=== PATIENT | male | born 1975 | race African-American/Black ===

== ENCOUNTER 2016-07-12 19:10 | Emergency (ER) | payer MEDICARE, OTHER ==
--- NOTE | 2016-07-12 19:13 | ED Physician Chart ---
Chief Complaint/HPI - Patient Information Date Seen:: 07/12/16 Time Seen:: 19:13 Chief Complaint:: chest pain History of Present Illness:: 41-year-old male history of MD 3, smoker, complains of acute, constant, squeezing, moderate to severe, 8 out of 10 at worst, chest pain 45 minutes prior to arrival. Has some associated anxiety. Denies nausea, vomiting, diaphoresis, palpitations, headache, acute vision changes, abdominal pain, gross hematuria, gross blood in stool. Historian:: Patient Review:: Nurse's Note Reviewed Review of Systems - Review of Systems Other: Complete system review otherwise unremarkable except as noted in history of present illness. Past Medical History - Past Medical History Past Medical History: HTN, Other (CHF, seizure disorder, history of pulmonary embolus, hypercholesterolemia, hepatitis C, HIV, schizophrenia, CVA 3, MD 3) Family History: None Social History: Smoker, No Alcohol, No Drug Use, Other Surgical History: None Psychiatricy History: None Medication: Reviewed Family Medical History - Family Member Mother History Unknown: Yes Physical Exam - Physical Examination Other:: INITIAL VITAL SIGNS: Reviewed by me GENERAL: Alert and interactive. No acute distress HEAD: Head is normocephalic and atraumatic EYES: EOMI. PERRL. No scleral icterus. No conjunctival injection ENT: Moist mucous membranes. NECK: Supple. No masses. Full range of motion RESPIRATORY: No tachypnea. Clear breath sounds bilaterally. No wheezing, rales, or rhonchi CV: Regular rate and rhythm. No murmurs, rubs, or gallops ABDOMEN: Soft, non-distended, non-tender. No guarding. No rebound. No masses. EXTREMITIES: No deformity. No cyanosis. No edema. SKIN: Warm and dry. No obvious rashes. NEUROLOGIC: Alert and oriented. Face is symmetric. Speech is normal. Moves all extremities equally. Motor and sensory distally intact. Labs/Radiology/EKG Results - Lab Results Results: Lab Results 07/12/16 07/12/16 07/12/16 Range/Units 19:50 19:50 19:50 WBC 6.3 (4.8-10.8) Th/cmm RBC 4.57 (4.30-5.70) Mil/cmm Hgb 10.9 L (13.2-17.3) gm/dL Hct 33.9 L (39.0-49.0) % MCV 74.3 L (80-99) fl MCH 23.9 L (26.0-30.0) pg MCHC Differential 32.2 (28.0-36.0) pg RDW 18.3 (11.5-20.0) % Plt Count 167 (150-400) Th/cmm MPV 8.7 fl Neutrophils % 56.3 (40.0-80.0) % Lymphocytes % 34.1 (20.0-50.0) % Monocytes % 5.7 (2.0-10.0) % Eosinophils % 2.9 (0.0-5.0) % Basophils % 1.0 (0.0-2.0) % PT 11.0 (9.5-11.5) SECONDS INR 1.06 (0.5-1.4) Sodium 136 (136-145) mEq/L Potassium 4.7 (3.5-5.1) mEq/L Chloride 110 H (98-107) mEq/L Carbon Dioxide 26.7 (21.0-31.0) mEq/L Anion Gap 4.0 L (7.0-16.0) BUN 21 (7-25) mg/dL Creatinine 1.3 (0.7-1.3) mg/dL Est GFR ( Amer) > 60.0 (>90) ml/min Est GFR (Non-Af Amer) > 60.0 ml/min BUN/Creatinine Ratio 16.2 Glucose 98 (70-105) mg/dL Calcium 9.4 (8.6-10.3) mg/dL Total Bilirubin 0.3 (0.3-1.0) mg/dL AST 23 (13-39) U/L ALT 14 (7-52) U/L Alkaline Phosphatase 84 (34-104) U/L Creatine Kinase 702 H (30-223) U/L Troponin I (0.01-0.05) ng/mL Total Protein 7.6 (6.0-8.3) gm/dL Albumin 4.3 (4.2-5.5) gm/dL Globulin 3.3 gm/dL Albumin/Globulin Ratio 1.3 (1.0-1.8) Triglycerides 97 (<150) mg/dL Cholesterol 204 H (<200) mg/dL LDL Cholesterol Direct 124 (75-193) mg/dL HDL Cholesterol 52 (23-92) mg/dL 07/12/16 Range/Units 19:50 WBC (4.8-10.8) Th/cmm RBC (4.30-5.70) Mil/cmm Hgb (13.2-17.3) gm/dL Hct (39.0-49.0) % MCV (80-99) fl MCH (26.0-30.0) pg MCHC Differential (28.0-36.0) pg RDW (11.5-20.0) % Plt Count (150-400) Th/cmm MPV fl Neutrophils % (40.0-80.0) % Lymphocytes % (20.0-50.0) % Monocytes % (2.0-10.0) % Eosinophils % (0.0-5.0) % Basophils % (0.0-2.0) % PT (9.5-11.5) SECONDS INR (0.5-1.4) Sodium (136-145) mEq/L Potassium (3.5-5.1) mEq/L Chloride (98-107) mEq/L Carbon Dioxide (21.0-31.0) mEq/L Anion Gap (7.0-16.0) BUN (7-25) mg/dL Creatinine (0.7-1.3) mg/dL Est GFR ( Amer) (>90) ml/min Est GFR (Non-Af Amer) ml/min BUN/Creatinine Ratio Glucose (70-105) mg/dL Calcium (8.6-10.3) mg/dL Total Bilirubin (0.3-1.0) mg/dL AST (13-39) U/L ALT (7-52) U/L Alkaline Phosphatase (34-104) U/L Creatine Kinase (30-223) U/L Troponin I 0.01 (0.01-0.05) ng/mL Total Protein (6.0-8.3) gm/dL Albumin (4.2-5.5) gm/dL Globulin gm/dL Albumin/Globulin Ratio (1.0-1.8) Triglycerides (<150) mg/dL Cholesterol (<200) mg/dL LDL Cholesterol Direct (75-193) mg/dL HDL Cholesterol (23-92) mg/dL - Radiology Results Comments:: Single AP VIEW Portable Chest X-ray was interpreted independently and contemporaneously by Calli Williamson MD: No cardiomegaly Normal mediastinum No lung infiltrates No pneumothorax No soft tissue or bony abnormalities - EKG Interpretations Comments:: 12-lead EKG Interpretation by Calli Williamson MD: Normal Sinus Rhythm with ventricular rate of 57 beats per minute Normal axis Normal intervals Left atrial enlargement with early repolarization pattern No acute ST or T wave changes. No obvious STEMI Assessment - Assessment General Assessment: SMOKING CESSATION COUNSELING: I spent greater than 3 minutes at the bedside with the patient discussing the benefits of smoking cessation, including decreased risk of heart disease, lung cancer, and emphysema. We also discussed strategies for smoking cessation, including pharmaceutical options. The patient was also encouraged to follow up with the primary care physician for outpatient follow-up. ED Septic Shock - . Is Septic Shock (SBP<90, OR Lactate>4 mmol\L) present?: No Reassessment (Disposition) - Reassessment Reassessment:: Patient reports aspirin allergy. We will hold aspirin given allergy. Patient is a heavy smoker. Has bilateral wheezing. Ordered DuoNeb. Patient refuses DuoNeb. Patient became very aggressive toward staff. I did discuss his lab findings with him. And x-rays an EKG. Patient did receive intramuscular Toradol. No indication of this is cardiac related at this point. I recommended that he stay for observation given his history. However there is no indication of EKG that he had prior MD. He has no neurological deficits and does report CVA 3. Patient decided he would leave AGAINST MEDICAL ADVICE. Reassessment Condition:: Improved - Diagnosis Diagnosis:: Acute chest pain unspecified Acute bronchitis - Patient Disposition Discharge/Transfer:: Against Medical Advice Time:: 20:56 Condition at Disposition:: Improved ED Discharge Plan - Patient Disposition Admit/Discharge/Transfer: AGAINST MEDICAL ADVICE
[2016-07-12] MEDS ORDERED: Albuterol/Ipratropium Neb 3 ML AERS HHN ONE (19:52)
[2016-07-12 20:13] LABS: % EOSINOPHILS 2.9 % (0.0-5.0); % LYMPHOCYTES 34.1 % (20.0-50.0); % MONOCYTES 5.7 % (2.0-10.0); % NEUTROPHILS 56.3 % (40.0-80.0); HEMATOCRIT 33.9 % (39.0-49.0); HEMOGLOBIN 10.9 gm/dL (13.2-17.3); MEAN CELL VOLUME 74.3 fl (80-99); MEAN CORPUSCULAR HEMOGLOBIN 23.9 pg (26.0-30.0); MEAN CORPUSCULAR HGB CONC 32.2 pg (28.0-36.0); MEAN PLATELET VOLUME 8.7 fl; NEUTROPHILE ABSOLUTE 3.5 Th/cmm (1.8-8.0); PLATELET COUNT 167 Th/cmm (150-400); RED BLOOD COUNT 4.57 Mil/cmm (4.30-5.70); RED CELL DISTRIBUTION WIDTH 18.3 % (11.5-20.0); WHITE BLOOD COUNT 6.3 Th/cmm (4.8-10.8)
[2016-07-12 20:25] LABS: ALB/GLOB RATIO 1.3 (1.0-1.8); ALKALINE PHOSPHATASE 84 U/L (34-104); BILIRUBIN,TOTAL 0.3 mg/dL (0.3-1.0); BUN - UREA NITROGEN 21 mg/dL (7-25); BUN/CREATININE RATIO 16.2; CALCIUM SERUM 9.4 mg/dL (8.6-10.3); CARBON DIOXIDE 26.7 mEq/L (21.0-31.0); CHLORIDE 110 mEq/L (98-107); CHOLESTEROL 204 mg/dL (<200); CREATININE - SERUM 1.3 mg/dL (0.7-1.3); GLUCOSE 98 mg/dL (70-105); POTASSIUM SERUM 4.7 mEq/L (3.5-5.1); SGOT 23 U/L (13-39); SGPT/ALT 14 U/L (7-52); SODIUM SERUM 136 mEq/L (136-145); TRIGLYCERIDES 97 mg/dL (<150)
[2016-07-12 20:28] LABS: TROP I 0.01 ng/mL (0.01-0.05)
[2016-07-12 20:29] LABS: INR 1.06 (0.5-1.4)
[2016-07-12 20:56] LABS: BNP 21.9 pg/mL (5.0-100.0)
--- NOTE | 2016-07-13 09:49 | Diagnostic Imaging Report ---
Portable chest x-ray History: Pain Allowing for portable technique the heart size is normal. No focal pulmonary parenchymal processes. No hilar or mediastinal abnormalities. Impression: No acute abnormalities.
== END 2016-07-12 20:50 | disposition left against medical advice (07) ==
LOC: ER 19:10
DX: R07.89 Other chest pain (principal); J20.9 Acute bronchitis, unspecified; I10 Essential (primary) hypertension; F17.200 Nicotine dependence, unspecified, uncomplicated; Z88.6 Allergy status to analgesic agent; Z88.0 Allergy status to penicillin; Z88.8 Allergy status to other drugs, medicaments and biological substances
CPT/HCPCS: 36415-UA; 71010-TC; 80053-TC; 80061-TC; 82550-TC; 82553; 83880-TC; 84484-TC; 85025-TC; 85610-TC; 93005; J1885

== ENCOUNTER 2016-09-30 10:04 | Emergency (ER) | payer MEDICARE, OTHER ==
[2016-09-30 10:57] LABS: % BASOPHILS 0.2 % (0.0-2.0); % EOSINOPHILS 1.9 % (0.0-5.0); % LYMPHOCYTES 21.9 % (20.0-50.0); % MONOCYTES 8.2 % (2.0-10.0); % NEUTROPHILS 67.8 % (40.0-80.0); HEMATOCRIT 32.9 % (39.0-49.0); HEMOGLOBIN 10.7 gm/dL (13.2-17.3); MEAN CELL VOLUME 77.4 fl (80-99); MEAN CORPUSCULAR HEMOGLOBIN 25.1 pg (26.0-30.0); MEAN CORPUSCULAR HGB CONC 32.5 pg (28.0-36.0); MEAN PLATELET VOLUME 8.7 fl; NEUTROPHILE ABSOLUTE 5.5 Th/cmm (1.8-8.0); PLATELET COUNT 141 Th/cmm (150-400); RED BLOOD COUNT 4.25 Mil/cmm (4.30-5.70); RED CELL DISTRIBUTION WIDTH 18.8 % (11.5-20.0)
[2016-09-30 11:02] LABS: WHITE BLOOD COUNT 8.2 Th/cmm (4.8-10.8)
[2016-09-30 11:06] LABS: URINE BILIRUBIN NEGATIVE (NEGATIVE); URINE COLOR YELLOW; URINE GLUCOSE (UA) NEGATIVE (NEGATIVE); URINE KETONE NEGATIVE (NEGATIVE)
[2016-09-30 11:07] LABS: URINE BLOOD NEGATIVE (NEGATIVE); URINE PROTEIN TRACE mg/dL (NEGATIVE); URINE UROBILINOGEN 0.2 E.U./dL (0.2 - 1.0)
[2016-09-30 11:08] LABS: ALB/GLOB RATIO 1.2 (1.0-1.8); ANION GAP 9.8 (7.0-16.0); BILIRUBIN,TOTAL 0.2 mg/dL (0.3-1.0); BUN/CREATININE RATIO 17.6; CALCIUM SERUM 9.4 mg/dL (8.6-10.3); CARBON DIOXIDE 24.6 mEq/L (21.0-31.0); CREATININE - SERUM 1.7 mg/dL (0.7-1.3); POTASSIUM SERUM 4.4 mEq/L (3.5-5.1)
[2016-09-30 11:15] LABS: URINE BACTERIA NONE SEEN /hpf (NONE SEEN); URINE EPITHELIAL CELLS OCCASIONAL /lpf (FEW); URINE RBC NONE SEEN /hpf (0-5); URINE WBC NONE SEEN /hpf (0-5)
[2016-09-30 11:23] LABS: AMPHETAMINE URINE NEGATIVE (NEGATIVE); BARBITURATES URINE POSITIVE (NEGATIVE); METHADONE URINE NEGATIVE (NEGATIVE)
--- NOTE | 2016-09-30 12:10 | ED Physician Chart ---
Chief Complaint/HPI - Patient Information Date Seen:: 09/30/16 Time Seen:: 10:20 Chief Complaint:: abdomimal pain History of Present Illness:: THIS IS A 41 YO MALE WHO STATES THAT HE HAS ABDOMINAL PAIN FROM VOMITING UP BLOOD YESTERDAY. HE ALSO STATED THAT HE WAS SCOPED AND ANOTHER HOSPITAL LAST NIGHT FOR HIS BLEEDING. NOW HE STATES THAT HE IS CONCERNED ABOUT HIS DIARRHEA. HE RATES HIS PAIN AND 9/10 FOR THE LAST THREE HOURS. HE IS A SMOKER AND TAKES MEDICATIONS FOR PAIN AND ANXIETY. HE REQUEST THAT HIS DOCTOR BE CALLED. HIS PMD WAS CALLED AT [phone] DR. Hobson, however he will not be in until monday. THE OFFICE WAS IN [place], [place]., THE NURSE STATED THAT HE GETS ATIVAN AND NARCO FOR HIS CONDITION WHICH SHE WOULD NOT ELABORATE ON. HE DENIES FEVER, VOMITING DIAPHORESIS, PALPITATION AND DENIES URINARY TRACT SYMPTOMS. Allergies:: Allergies Allergy/AdvReac Type Severity Reaction Status Date / Time acetaminophen [From Vicodin] Allergy Verified 07/12/16 19:31 aspirin Allergy Verified 07/12/16 19:31 hydrocodone [From Vicodin] Allergy Verified 07/12/16 19:31 nitroglycerin Allergy Verified 07/12/16 19:31 Penicillins Allergy Verified 07/12/16 19:31 Vitals:: Vital Signs - 8 hr 09/30/16 09/30/16 10:13 11:23 Temp 98.5 F 98.5 F HR 100 100 RR 16 16 BP 123/74 123/74 O2 Sat % 100 100 Historian:: Patient, Medical Records Review:: Nurse's Note Reviewed Review of Systems - Review of Systems General/Constitutional: No fever, No chills, No weight loss, No weakness, No diaphoresis, No edema, No loss of appetite Skin: No skin lesions, No rash, No bruising Head: No headache, No light-headedness Eyes: No loss of vision, No pain, No diplopia ENT: No earache, No nasal drainage, No sore throat, No tinnitus Neck: No neck pain, No swelling, No thyromegaly, No stiffness, No mass noted Cardio Vascular: No chest pain, No palpitations, No PND, No orthopnea, No edema Pulmonary: No SOB, No cough, No sputum, No wheezing GI: No nausea, No vomiting, Diarrhea, Pain, No melena, No hematochezia, Constipation, No hematemesis G/U: No dysuria, No frequency, No hematuria Musculoskeletal: No bone or joint pain, No back pain, No muscle pain Endocrine: No polyuria, No polydipsia Psychiatric: No prior psych history, No depression, No anxiety, No suicidal ideation Hematopoietic: No bruising, No lymphadenopathy Allergic/Immuno: No urticaria, No angioedema Neurological: No syncope, No focal symptoms, No weakness, No paresthesia, No headache, No seizure, No dizziness, No confusion, No vertigo Past Medical History - Past Medical History Obtainable: Yes Past Medical History: HTN, CHF, CVA/TIA, DVT/PE, Dyslipidemia, Other (PSYCH DISORDER, HEP C, HIV) Family History: Heart disease, HTN Social History: Smoker, Alcohol, Illicit Drug Use Surgical History: None Psychiatricy History: Schizophrenia Medication: Reviewed Family Medical History - Family Member Mother History Unknown: Yes Physical Exam - Physical Examination General/Constitutional: Awake, Well-developed, well-nourished, Alert, No distress, GCS 15, Non-toxic appearing, Ambulatory Head: Atraumatic Eyes: Lids, conjuctiva normal, PERRL, EOMI Skin: Nl inspection, No rash, No skin lesions, No ecchymosis, Well hydrated, No lymphadenopathy ENMT: External ears, nose nl, Nasal exam nl, Lips, teeth, gums nl Neck: Nontender, Full ROM w/o pain, No JVD, No nuchal rigidity, No bruit, No mass, No stridor Respiratory: Nl effort/Exclusion, Clear to Auscultation, No Wheeze/Rhonchi/Rales Cardio Vascular: RRR, No murmur, gallop, rubs, NL S1 S2 GI: No tenderness/rebounding/guarding (MINIMAL TENDERNESS IN THE EPIGASTRIC AREA ), No organomegaly, No hernia, Normal BS's, Nondistended, No mass/bruits, No McBurney tenderness : No CVA tenderness Extremities: No tenderness or effusion, Full ROM, normal strength in all extremities, No edema, Normal digits & nails Neuro/Psych: Alert/oriented, DTR's symmetric, Normal sensory exam, Normal motor strength, Judgement/insight normal, Mood normal, Normal gait, No focal deficits Misc: normal gait, Normal back, No paraspinal tenderness Labs/Radiology/EKG Results - Lab Results Results: Laboratory Tests 09/30/16 09/30/16 09/30/16 10:40 10:40 10:40 WBC 8.2 D RBC 4.25 L Hgb 10.7 L Hct 32.9 L MCV 77.4 L MCH 25.1 L MCHC Differential 32.5 RDW 18.8 Plt Count 141 L MPV 8.7 Neutrophils % 67.8 Lymphocytes % 21.9 Monocytes % 8.2 Eosinophils % 1.9 Basophils % 0.2 Sodium 138 Potassium 4.4 Chloride 108 H Carbon Dioxide 24.6 Anion Gap 9.8 BUN 30 H Creatinine 1.7 H Est GFR ( Amer) 56.9 Est GFR (Non-Af Amer) 47.0 BUN/Creatinine Ratio 17.6 Glucose 108 H Calcium 9.4 Total Bilirubin 0.2 L AST 17 ALT 16 Alkaline Phosphatase 97 Troponin I Total Protein 7.4 Albumin 4.1 L Globulin 3.3 Albumin/Globulin Ratio 1.2 Urine Source CLEAN C Urine Color YELLOW Urine Clarity SL. CLOUDY Urine pH 6.0 Ur Specific [place] 1.010 Urine Protein TRACE Urine Glucose (UA) NEGATIVE Urine Ketones NEGATIVE Urine Blood NEGATIVE Urine Nitrate NEGATIVE Urine Bilirubin NEGATIVE Urine Urobilinogen 0.2 Ur Leukocyte Esterase NEGATIVE Urine RBC NONE SEEN Urine WBC NONE SEEN Ur Epithelial Cells OCCASIONAL Urine Bacteria NONE SEEN Urine Opiates Screen Urine Methadone Screen Ur Barbiturates Screen Ur Tricyclics Screen Ur Phencyclidine Scrn Amphetamines Screen U Methamphetamines Scrn U Benzodiazepines Scrn U Cocaine Metab Screen U Cannabinoids Screen Ethyl Alcohol 09/30/16 09/30/16 09/30/16 10:40 10:40 10:40 WBC RBC Hgb Hct MCV MCH MCHC Differential RDW Plt Count MPV Neutrophils % Lymphocytes % Monocytes % Eosinophils % Basophils % Sodium Potassium Chloride Carbon Dioxide Anion Gap BUN Creatinine Est GFR ( Amer) Est GFR (Non-Af Amer) BUN/Creatinine Ratio Glucose Calcium Total Bilirubin AST ALT Alkaline Phosphatase Troponin I 0.02 Total Protein Albumin Globulin Albumin/Globulin Ratio Urine Source Urine Color Urine Clarity Urine pH Ur Specific [place] Urine Protein Urine Glucose (UA) Urine Ketones Urine Blood Urine Nitrate Urine Bilirubin Urine Urobilinogen Ur Leukocyte Esterase Urine RBC Urine WBC Ur Epithelial Cells Urine Bacteria Urine Opiates Screen POSITIVE H Urine Methadone Screen NEGATIVE Ur Barbiturates Screen POSITIVE H Ur Tricyclics Screen NEGATIVE Ur Phencyclidine Scrn NEGATIVE Amphetamines Screen NEGATIVE U Methamphetamines Scrn NEGATIVE U Benzodiazepines Scrn NEGATIVE U Cocaine Metab Screen NEGATIVE U Cannabinoids Screen NEGATIVE Ethyl Alcohol < 10 Assessment - Assessment General Assessment: THE PATIENT THREATEN TO GO AMA BUT HE WAS COOPERATIVE AFTER THE PLAN OF TREATMENT WAS GIVEN TO HIM. HE WAS GIVEN FANATREX FOR HIS PAIN AND NERVOUS DISORDER. ED Septic Shock - . Is Septic Shock (SBP<90, OR Lactate>4 mmol\L) present?: No - <6hrs of presentation: Vital Signs: Vital Signs - 8 hr 09/30/16 09/30/16 10:13 11:23 Temp 98.5 F 98.5 F HR 100 100 RR 16 16 BP 123/74 123/74 O2 Sat % 100 100 Reassessment (Disposition) - Reassessment Reassessment Condition:: Unchanged - Diagnosis Diagnosis:: ABDOMINAL PAIN - Aftercare/Follow up Instructions Aftercare/Follow-Up Instructions:: Counseled pt regarding lab results/diagnosis & need follow up, Refer to Discharge Instructions, Counseled pt & family regarding lab results/diagnosis & need follow up - Patient Disposition Discharge/Transfer:: Home Condition at Disposition:: Unchanged ED Discharge Plan - Patient Disposition Admit/Discharge/Transfer: PT DISCHARGED HOME Condition at Disposition: Unchanged Prescriptions: Gabapentin 600 mg PO Q6HR PRN #30 tablet PRN Reason: Pain (Mild) Instructions: Abdominal Pain Additional Instructions: Folow up with Primary care provider in 1-3 days. If symptoms worsen return to Emergency room Accepting Physician: Ly Coffman [Other] - 1-3 Days
== END 2016-09-30 11:55 | disposition home or self-care (01) ==
LOC: ER 10:04
DX: I11.0 Hypertensive heart disease with heart failure (principal); I50.9 Heart failure, unspecified; E78.5 Hyperlipidemia, unspecified; F17.200 Nicotine dependence, unspecified, uncomplicated; Z88.0 Allergy status to penicillin; Z86.73 Personal history of transient ischemic attack (TIA), and cerebral infarction without residual deficits; Z88.6 Allergy status to analgesic agent; Z88.8 Allergy status to other drugs, medicaments and biological substances
CPT/HCPCS: 36415-UA; 80053-TC; 80307; 80320-TC; 81001-TC; 84443-TC; 84484-TC; 85025-TC; 86592-TC; Z7502

== ENCOUNTER 2017-07-13 23:31 | Inpatient (IN) | payer MEDICARE, OTHER ==
[2017-07-14 00:28] LABS: % LYMPHOCYTES 26.7 % (20.0-50.0); % MONOCYTES 7.1 % (2.0-10.0); % NEUTROPHILS 64.2 % (40.0-80.0); EOSINOPHILE ABSOLUTE 0.1 Th/cmm (0.1-0.4); HEMATOCRIT 30.6 % (41.0-60); HEMOGLOBIN 9.9 gm/dL (12-16); LYMPHOCYTE ABSOLUTE 1.8 Th/cmm (1.5-3.0); MEAN CELL VOLUME 75.3 fl (80-99); MEAN CORPUSCULAR HEMOGLOBIN 24.4 pg (26.0-30.0); MEAN CORPUSCULAR HGB CONC 32.4 pg (28.0-36.0); MONOCYTE ABSOLUTE 0.5 Th/cmm (0.3-1.0); NEUTROPHILE ABSOLUTE 4.2 Th/cmm (1.8-8.0); PLATELET COUNT 220 Th/cmm (150-400); RED BLOOD COUNT 4.07 Mil/cmm (4.30-5.70); RED CELL DISTRIBUTION WIDTH 18.7 % (11.5-20.0); WHITE BLOOD COUNT 6.6 Th/cmm (4.8-10.8)
--- NOTE | 2017-07-14 00:32 | ED Physician Chart ---
ED Chief Complaint/HPI - Patient Information Date Seen:: 07/14/17 Time Seen:: 00:15 Chief Complaint:: chest pain History of Present Illness:: Patient developed squeezing-like substernal chest pain at 1900 tonight. Pain is 8 on a scale 1-10. Pain radiates to his right elbow or right leg. He had mild shortness of breath and no diaphoresis. Allergies:: Allergies Allergy/AdvReac Type Severity Reaction Status Date / Time acetaminophen [From Vicodin] Allergy Verified 07/12/16 19:31 aspirin Allergy Verified 07/12/16 19:31 hydrocodone [From Vicodin] Allergy Verified 07/12/16 19:31 nitroglycerin Allergy Verified 07/12/16 19:31 Penicillins Allergy Verified 07/12/16 19:31 Vitals:: Vital Signs - 8 hr 07/13/17 23:40 Temp 98.2 F HR 78 RR 18 BP 127/86 O2 Sat % 98 Historian:: Patient Review:: Nurse's Note Reviewed ED Review of Systems - Review of Systems General/Constitutional: No fever Skin: No skin lesions Head: No headache Eyes: No loss of vision ENT: No earache Neck: No neck pain, No swelling Cardio Vascular: Chest pain Pulmonary: SOB GI: No nausea, No vomiting, No diarrhea G/U: No dysuria Musculoskeletal: No bone or joint pain Endocrine: No polyuria, No polydipsia Psychiatric: No prior psych history Hematopoietic: No bruising Allergic/Immuno: No urticaria Neurological: No syncope, No focal symptoms ED Past Medical History - Past Medical History Past Medical History: HTN, CAD (sickle cell disease; renal failure; status post 3 MIs), Dyslipidemia, Seizures, Other (sickle cell disease; renal failure; status post DVTs 8) Family History: Diabetes Melitus, HTN, Other ( CVA; hyperlipidemia ) Social History: Smoker, Other (smokes one package of cigarettes a day) Surgical History: other (IVC filter; 1 coronary artery stent) Psychiatricy History: None Medication: Reviewed Family Medical History - Family Member Mother History Unknown: Yes Hx Family Coronary Artery Disease: Yes Hx Family Congestive Heart Failure: Yes Hx Family Hypertension: Yes ED Physical Exam - Physical Examination General/Constitutional: Well-developed, well-nourished, Alert, No distress Head: Atraumatic Eyes: Lids, conjuctiva normal Skin: Nl inspection, No rash, No skin lesions, No ecchymosis ENMT: External ears, nose nl, TM canals nl, Nasal exam nl, Lips, teeth, gums nl , Oropharynx nl, Tonsils nl Neck: No nuchal rigidity Respiratory: Nl effort/Exclusion Other Respiratory comments:: Scattered wheezes Cardio Vascular: RRR GI: No tenderness/rebounding/guarding : No CVA tenderness Extremities: Normal digits & nails Other Extremities comments:: 2.5 out of 4 pretibial pitting edema Neuro/Psych: No focal deficits Misc: No paraspinal tenderness ED Labs/Radiology/EKG Results - Lab Results Results: Laboratory Results - last 24 hr 07/14/17 07/14/17 07/14/17 00:15 00:15 00:15 WBC 6.6 RBC 4.07 L Hgb 9.9 L Hct 30.6 L MCV 75.3 L MCH 24.4 L MCHC Differential 32.4 RDW 18.7 Plt Count 220 MPV 8.0 Neutrophils % 64.2 Lymphocytes % 26.7 Monocytes % 7.1 Eosinophils % 2.0 Basophils % 0.0 D-Dimer Sodium 139 Potassium 3.8 Chloride 107 Carbon Dioxide 26.0 Anion Gap 9.8 BUN 17 Creatinine 1.0 Est GFR ( Amer) > 60.0 Est GFR (Non-Af Amer) > 60.0 BUN/Creatinine Ratio 17.0 Glucose 109 H Calcium 8.9 Magnesium 1.9 Troponin I B-Natriuretic Peptide 15.8 07/14/17 07/14/17 00:15 00:15 WBC RBC Hgb Hct MCV MCH MCHC Differential RDW Plt Count MPV Neutrophils % Lymphocytes % Monocytes % Eosinophils % Basophils % D-Dimer 401 H Sodium Potassium Chloride Carbon Dioxide Anion Gap BUN Creatinine Est GFR ( Amer) Est GFR (Non-Af Amer) BUN/Creatinine Ratio Glucose Calcium Magnesium Troponin I < 0.01 L B-Natriuretic Peptide - Radiology Results Results: Chest x-ray negative - EKG Interpretations Rate & Rhythm: normal sinus rhythm with a rate of 73 [place]: normal ED Assessment - Assessment General Assessment: At 0135 patient's pain was slightly improved ED Septic Shock - . Is Septic Shock (SBP<90, OR Lactate>4 mmol\L) present?: No - <6hrs of presentation: Vital Signs: Vital Signs - 8 hr 07/13/17 23:40 Temp 98.2 F HR 78 RR 18 BP 127/86 O2 Sat % 98 ED Reassessment (Disposition) - Reassessment Reassessment Condition:: Improved - Diagnosis Diagnosis:: Chest pain; anemia; s/p DVTs - Patient Disposition Admitted to:: Telemetry Spoke to:: Josiah Bob Admitting Medical Physician:: Josiah Bob Condition at Disposition:: Stable, Improved
[2017-07-14] MEDS ORDERED: Morphine Sulfate 4 mg/mL 1mL Syr IV STA (00:37)
[2017-07-14 00:42] LABS: ANION GAP 9.8 (7.0-16.0); BUN - UREA NITROGEN 17 mg/dL (7-25); CALCIUM SERUM 8.9 mg/dL (8.6-10.3); CHLORIDE 107 mEq/L (98-107); GFR AFRICAN-AMERICAN > 60.0 ml/min (>90); GFR NON AFRICAN-AMERICAN > 60.0 ml/min; GLUCOSE 109 mg/dL (70-105); MAGNESIUM 1.9 mg/dL (1.9-2.7); POTASSIUM SERUM 3.8 mEq/L (3.5-5.1); SODIUM SERUM 139 mEq/L (136-145)
[2017-07-14] MEDS ORDERED: Morphine Sulfate 4 mg/mL 1mL Syr ONE (00:43)
[2017-07-14] MEDS ORDERED: Morphine Sulfate 4 mg/mL 1mL Syr IV PRN (02:15)
[2017-07-14 03:17] VITALS: BP 133/83
--- NOTE | 2017-07-14 07:27 | Diagnostic Imaging Report ---
CHEST X-RAY: AP view INDICATION: pain COMPARISON: 07/12/2016 FINDINGS: There is mild elevation of the right hemidiaphragm. There is no focal consolidation or pleural effusions The heart is at the upper limits of normal in size. The osseous structures demonstrate no acute abnormalities. IMPRESSION: No focal consolidation identified.
== END 2017-07-14 07:47 | disposition left against medical advice (07) | DRG 303 ==
LOC: ER 23:31 → TELE 07-14 01:45
PROVIDERS: ADMIT Family Medicine; ATTEND Family Medicine
DX: I25.10 Atherosclerotic heart disease of native coronary artery without angina pectoris (principal); R07.89 Other chest pain; I10 Essential (primary) hypertension; E78.5 Hyperlipidemia, unspecified; D57.1 Sickle-cell disease without crisis; R56.9 Unspecified convulsions; F17.210 Nicotine dependence, cigarettes, uncomplicated; D64.9 Anemia, unspecified; Z88.0 Allergy status to penicillin; I25.2 Old myocardial infarction; Z95.5 Presence of coronary angioplasty implant and graft; Z88.8 Allergy status to other drugs, medicaments and biological substances; Z86.718 Personal history of other venous thrombosis and embolism; Z83.3 Family history of diabetes mellitus; Z82.49 Family history of ischemic heart disease and other diseases of the circulatory system
CPT/HCPCS: 36415-UA; 71045-TC; 80048-TC; 83735-TC; 83880-TC; 84484-TC; 85025-TC; 85379-TC; 93005; 96374

== ENCOUNTER 2018-03-16 07:06 | Emergency (ER) | payer MEDICARE, OTHER ==
--- NOTE | 2018-03-16 07:23 | ED Physician Chart ---
ED Chief Complaint/HPI - Patient Information Date Seen:: 03/16/18 Time Seen:: 07:26 Chief Complaint:: cough and SOB History of Present Illness:: cough and SOB in a man with h/o PE and DVT. patient is obnoxious and rude to all staff. Just came back from [place]. was diagnosed with pneumonia (records reviewed ) and was given a prescription for Cefdinir to take that he did not get filled. He continues to smoke. Allergies:: Allergies Allergy/AdvReac Type Severity Reaction Status Date / Time acetaminophen [From Vicodin] Allergy Verified 07/12/16 19:31 aspirin Allergy Verified 07/12/16 19:31 hydrocodone [From Vicodin] Allergy Verified 07/12/16 19:31 nitroglycerin Allergy Verified 07/12/16 19:31 Penicillins Allergy Verified 07/12/16 19:31 Historian:: Patient Review:: Nurse's Note Reviewed ED Review of Systems - Review of Systems General/Constitutional: No fever, No chills, No weight loss, No weakness, No diaphoresis, No edema, No loss of appetite Skin: No skin lesions, No rash, No bruising Head: No headache, No light-headedness Eyes: No loss of vision, No pain, No diplopia ENT: No earache, No nasal drainage, No sore throat, No tinnitus Neck: No neck pain, No swelling, No thyromegaly, No stiffness, No mass noted Cardio Vascular: Chest pain, No palpitations, No orthopnea, edema Pulmonary: SOB, Cough, No sputum, Wheezing GI: No nausea, No vomiting, No diarrhea, No pain, No melena, No hematochezia, No constipation, No hematemesis G/U: No dysuria, No frequency, No hematuria Musculoskeletal: No bone or joint pain, No back pain, Muscle pain Endocrine: No polyuria, No polydipsia Psychiatric: No prior psych history, No depression, No anxiety, No suicidal ideation Hematopoietic: No bruising, No lymphadenopathy Allergic/Immuno: No urticaria, No angioedema Neurological: No syncope, No focal symptoms, No weakness, No paresthesia, No headache, No seizure, No dizziness, No confusion, No vertigo ED Past Medical History - Past Medical History Obtainable: Yes Past Medical History: CAD, CVA/TIA, DVT/PE Social History: Smoker, Illicit Drug Use Surgical History: other (juan j filter in place.) Psychiatricy History: Schizophrenia Family Medical History - Family Member Mother History Unknown: Yes Hx Family Coronary Artery Disease: Yes Hx Family Congestive Heart Failure: Yes Hx Family Hypertension: Yes ED Physical Exam - Physical Examination General/Constitutional: Awake, Well-developed, well-nourished, Alert Other Gen/Cons comments:: overweight patient very rude and obnoxious to all staff. He was angry at nurse Mannie that he was breathing. Head: Atraumatic Eyes: Lids, conjuctiva normal, PERRL, EOMI Skin: Nl inspection, No rash, No skin lesions, No ecchymosis, Well hydrated, No lymphadenopathy ENMT: External ears, nose nl Neck: Nontender, No nuchal rigidity, No stridor Respiratory: Nl effort/Exclusion, Clear to Auscultation Cardio Vascular: RRR, No murmur, gallop, rubs, NL S1 S2 GI: No tenderness/rebounding/guarding, No organomegaly, No hernia, Normal BS's, Nondistended, No mass/bruits, No McBurney tenderness : No CVA tenderness Other Extremities comments:: edema RLE more than LLE 4+ pitting edema. denies calf tenderness. concerning for DVT. no evidence of compartment syndrome. Neuro/Psych: Alert/oriented Other Neuro/Psych comments:: mood is agitated and commanding. Telling staff what to do and what not to do. ED Assessment - Assessment General Assessment: EKG from 07:10:23 a.m. revelas normal sinus rhythm with flipped t wave in V1. CXR reading per my read: slightly enlarged heart. Slight increase in vascularity. CURES positive wtih [facility] 10/325, Alprazolam 0.5, Phenergan with codeine, Lorazepam, received IV Azactam for possible pneumonia. patient was here for several hours because no one could get an IV into him. Midline was placed by a nurse who came here all the way from [place]. No blood could be drawn from him for any lab work. Arterial stick had to be performed by respiratory to get lab work. Kait, central supply technician supervisor was busy for preop studies. She came here and told us that the ultrasound revealed an acute RLE DVT behind the popliteal area. AFTER HE WAS INFORMED OF THIS, the patient informed us that he has not taken his Eliquis in over a week. THEREFORE, PATIENT WAS BOLUSED WITH 6000 UNITS OF HEPARIN (after denying blood per any orifice in past or present) and started on a drip of 1600 UNITS OF HEPARIN PER HOUR PER PHARMACY. Patient told us that he was allergic to iodine after we wanted to perform a CT angio on him to rule out pulmonary emboli. Therefore, we had to order a VQ scan on him to rule out pulmonary emboli. Patient had to wait 4 hours for the VQ scan. At about the same time that the isotopes arrived, the patient stated that he was leaving AGAINST MEDICAL ADVICE. He refused to sign any paper work. I prepared a prescription for him for antibiotics (Doxycycline) and teaching paper work. He refused to take any of it at all. He was FULLY INFORMED THAT HE COULD IF HE WENT HOME WITH AN UNTREATED, ACUTE DEEP VENOUS THROMBOSIS IN HIS RIGHT LEG. FULLY INFORMED, HE DECIDED TO LEAVE BECAUSE he needed to take a bus to [place]. ED Septic Shock - . Is Septic Shock (SBP<90, OR Lactate>4 mmol\L) present?: No ED Reassessment (Disposition) - Reassessment Reassessment Condition:: Improved - Diagnosis Diagnosis:: Acute RLE DVT in a man who stopped taking his Eliquis over a week ago. Known h/o PE, with a juan j filter in place. Elevated d-dimer Paranoid schizophrenia patient rude to all staff. Possible early pneumonia, patient received Azactam and a prescription for Doxycycline that he refused to take. Drug screen positive for opiates and barbs. Low magnesium Subtherapeutic dilantin level. Normal BNP and troponin. - Aftercare/Follow up Instructions Medication Prescribed:: Doxycycline 100 mg po bid # 20 (which patient refused to take with him). Has Eliquis and a prescription for Eliquis at home which I advised him to take. - Patient Disposition Discharge/Transfer:: Against Medical Advice Condition at Disposition:: Stable, Improved
[2018-03-16] MEDS ORDERED: Albuterol/Ipratropium Neb 3 ML AERS HHN ONE ×2 (08:24→08:31)
[2018-03-16] MEDS ORDERED: Albuterol Nebulizer 2.5mg/3mL HHN STA (08:26)
[2018-03-16 08:32] LABS: % BASOPHILS 0.5 % (0.0-2.0); % EOSINOPHILS 0.8 % (0.0-5.0); % LYMPHOCYTES 22.7 % (20.0-50.0); % MONOCYTES 4.7 % (2.0-10.0); % NEUTROPHILS 71.3 % (40.0-80.0); EOSINOPHILE ABSOLUTE 0.1 Th/cmm (0.1-0.4); HEMATOCRIT 40.1 % (41.0-60); HEMOGLOBIN 12.9 gm/dL (12-16); LYMPHOCYTE ABSOLUTE 1.9 Th/cmm (1.5-3.0); MEAN CELL VOLUME 81.5 fl (80-99); MEAN CORPUSCULAR HEMOGLOBIN 26.2 pg (26.0-30.0); MEAN CORPUSCULAR HGB CONC 32.2 pg (28.0-36.0); MEAN PLATELET VOLUME 7.9 fl; MONOCYTE ABSOLUTE 0.4 Th/cmm (0.3-1.0); NEUTROPHILE ABSOLUTE 6.1 Th/cmm (1.8-8.0); PLATELET COUNT 209 Th/cmm (150-400); RED BLOOD COUNT 4.92 Mil/cmm (4.30-5.70); RED CELL DISTRIBUTION WIDTH 17.6 % (11.5-20.0); WHITE BLOOD COUNT 8.5 Th/cmm (4.8-10.8)
[2018-03-16 08:36] LABS: URINE SOURCE CLEAN C
[2018-03-16] MEDS ORDERED: Albuterol Nebulizer 2.5mg/3mL HHN ONE (08:39)
[2018-03-16 08:40] LABS: URINE BILIRUBIN NEGATIVE (NEGATIVE); URINE BLOOD NEGATIVE (NEGATIVE); URINE GLUCOSE (UA) NEGATIVE (NEGATIVE); URINE KETONE NEGATIVE (NEGATIVE); URINE LEUKOCYTE ESTERASE NEGATIVE (NEGATIVE); URINE MICROSCOPIC INDICATED? YES; URINE NITRATE NEGATIVE (NEGATIVE); URINE PROTEIN TRACE mg/dL (NEGATIVE); URINE UROBILINOGEN 0.2 E.U./dL (0.2 - 1.0)
[2018-03-16 08:45] LABS: ALB/GLOB RATIO 1.2 (1.0-1.8); ALBUMIN 3.8 gm/dL (4.2-5.5); ALKALINE PHOSPHATASE 105 U/L (34-104); ANION GAP 9.7 (7.0-16.0); BILIRUBIN,TOTAL 0.2 mg/dL (0.3-1.0); BUN - UREA NITROGEN 25 mg/dL (7-25); CALCIUM SERUM 8.9 mg/dL (8.6-10.3); CARBON DIOXIDE 31.2 mEq/L (21.0-31.0); CHLORIDE 103 mEq/L (98-107); GFR AFRICAN-AMERICAN > 60.0 ml/min (>90); GFR NON AFRICAN-AMERICAN > 60.0 ml/min; GLUCOSE 114 mg/dL (70-105); MAGNESIUM 1.8 mg/dL (1.9-2.7); PHOSPHOROUS 4.2 mg/dL (2.5-5.0); POTASSIUM SERUM 3.9 mEq/L (3.5-5.1); SGOT 31 U/L (13-39); SGPT/ALT 49 U/L (7-52); SODIUM SERUM 140 mEq/L (136-145); TOTAL PROTEIN,SERUM 7.1 gm/dL (6.0-8.3)
[2018-03-16 08:52] LABS: URINE COLOR STRAW
[2018-03-16 08:53] LABS: URINE CLARITY CLEAR (CLEAR)
[2018-03-16 08:54] LABS: AMPHETAMINE URINE NEGATIVE (NEGATIVE); BARBITURATES URINE POSITIVE (NEGATIVE); BENZODIAZEPINES QUAL URINE NEGATIVE (NEGATIVE); CANNABINOID THC NEGATIVE (NEGATIVE); COCAINE METABOLITE QUAL URINE NEGATIVE (NEGATIVE); METHADONE URINE NEGATIVE (NEGATIVE); METHAMPHETAMINES QUAL URINE NEGATIVE (NEGATIVE); OPIATES (MORPHINE) QUAL. URINE POSITIVE (NEGATIVE); PHENCYCLIDINE (PCP) URINE NEGATIVE (NEGATIVE); TRICYCLICS (TCA) QUAL. URINE NEGATIVE (NEGATIVE)
[2018-03-16 08:57] LABS: INR 1.13 (0.5-1.4); PROTHROMBIN TIME (TEST) 11.6 SECONDS (9.5-11.5)
[2018-03-16 09:00] LABS: URINE EPITHELIAL CELLS RARE /lpf (FEW); URINE RBC NONE SEEN /hpf (0-5); URINE WBC NONE SEEN /hpf (0-5)
--- NOTE | 2018-03-16 09:24 | Diagnostic Imaging Report ---
Chest x-ray single view History: Pain The heart size is normal. No focal pulmonary parenchymal processes. No hilar or mediastinal abnormalities. Impression: No acute abnormalities
--- NOTE | 2018-03-16 13:02 | Diagnostic Imaging Report ---
Bilateral lower extremity Doppler venous ultrasound exam HISTORY: Pain Sonographic sector images were obtained through the deep venous systems of both legs. Associated Doppler data was obtained. The exam the right leg demonstrates patency of the common femoral, superficial femoral, and posterior tibial veins. No thrombus. Intraluminal echogenic density consistent with thrombus is seen within the right popliteal vein. Associated absence of compressibility and augmentation. There is patency of the deep venous system of the left leg. No thrombus. Normal compressibility and augmentation responses. IMPRESSION: 1. Findings consistent with segmental thrombophlebitis within the right popliteal vein.
[2018-03-16] MEDS ORDERED: Heparin 25,000 Units In D5W 25,000 UNITS/250 ML BAG IV PRN (13:20)
[2018-03-16] MEDS ORDERED: Heparin 25,000 Units In D5W 25,000 UNITS/250 ML BAG IV ONE (13:37)
== END 2018-03-16 16:20 | disposition left against medical advice (07) ==
LOC: ER 07:06
DX: I82.401 Acute embolism and thrombosis of unspecified deep veins of right lower extremity (principal); F20.0 Paranoid schizophrenia; E61.2 Magnesium deficiency; R79.89 Other specified abnormal findings of blood chemistry; I25.10 Atherosclerotic heart disease of native coronary artery without angina pectoris; F17.200 Nicotine dependence, unspecified, uncomplicated; Z51.81 Encounter for therapeutic drug level monitoring; Z86.73 Personal history of transient ischemic attack (TIA), and cerebral infarction without residual deficits
CPT/HCPCS: 99284; 96365; 96366; 96368; 96375; 94640; 93005; 93970; 71045; 84484; 83880; 36415; 85379; 80307; 85025; 85610; 81001; 83735; 80185; 84100; 80053; J2405; J1644 ×2; J3490; J7613; Z7502

== ENCOUNTER 2018-07-04 21:08 | Observation (INO) | payer MEDICARE, OTHER ==
--- NOTE | 2018-07-04 21:28 | ED Physician Chart ---
ED Chief Complaint/HPI - Patient Information Date Seen:: 07/04/18 Time Seen:: 21:00 Chief Complaint:: Chest Pain History of Present Illness:: onset x one day of exertional chest pain with leg pain; pt denies trauma, S/T, H /As, neck pain, SOB, Abd. Pain, cough, A/N/V/D/C, fever, chills, or urinary s/s Allergies:: Allergies Allergy/AdvReac Type Severity Reaction Status Date / Time acetaminophen [From Vicodin] Allergy Verified 03/18/18 08:25 aspirin Allergy Verified 03/18/18 08:25 hydrocodone [From Vicodin] Allergy Verified 03/18/18 08:25 Iodine and Iodide Containing Allergy Verified 03/18/18 08:25 Produc nitroglycerin Allergy Verified 03/18/18 08:25 Penicillins Allergy Verified 03/18/18 08:25 Vitals:: Vital Signs - 8 hr 07/04/18 21:08 Temp 97.8 F HR 70 RR 18 BP 144/92 O2 Sat % 96 Historian:: Patient Review:: Nurse's Note Reviewed, Old Chart Reviewed ED Review of Systems - Review of Systems General/Constitutional: No fever, No chills, No weight loss, No weakness, No diaphoresis, No edema, No loss of appetite Skin: No skin lesions, No rash, No bruising Head: No headache, No light-headedness Eyes: No loss of vision, No pain, No diplopia ENT: No earache, No nasal drainage, No sore throat, No tinnitus Neck: No neck pain, No swelling, No thyromegaly, No stiffness, No mass noted Cardio Vascular: Chest pain, No palpitations, No PND, No orthopnea, edema Pulmonary: SOB, No cough, No sputum, No wheezing GI: No nausea, No vomiting, No diarrhea, No pain, No melena, No hematochezia, No constipation, No hematemesis G/U: No dysuria, No frequency, No hematuria, No nacturia Musculoskeletal: No bone or joint pain, No back pain, No muscle pain Endocrine: No polyuria, No polydipsia Psychiatric: No prior psych history, No depression, No anxiety, No suicidal ideation, No homicidal ideation, No auditory hallucination, No visual hallucination Hematopoietic: No bruising, No lymphadenopathy Allergic/Immuno: No urticaria, No angioedema Neurological: No syncope, No focal symptoms, No weakness, No paresthesia, No headache, No seizure, No dizziness, No confusion, No vertigo ED Past Medical History - Past Medical History Obtainable: Yes Past Medical History: HTN, Dyslipidemia Family History: HTN Social History: Smoker, Alcohol, No Drug Use, Single Surgical History: None Psychiatricy History: None Medication: Reviewed Family Medical History - Family Member Mother History Unknown: Yes Hx Family Coronary Artery Disease: Yes Hx Family Congestive Heart Failure: Yes Hx Family Hypertension: Yes ED Physical Exam - Physical Examination General/Constitutional: Awake, Well-developed, well-nourished, Alert, No distress, GCS 15, Non-toxic appearing, Ambulatory Head: Atraumatic Eyes: Lids, conjuctiva normal, PERRL, EOMI Skin: Nl inspection, No rash, No skin lesions, No ecchymosis, Well hydrated, No lymphadenopathy ENMT: External ears, nose nl, TM canals nl, Nasal exam nl, Lips, teeth, gums nl , Oropharynx nl, Tonsils nl Neck: Nontender, Full ROM w/o pain, No JVD, No nuchal rigidity, No bruit, No mass, No stridor Respiratory: Nl effort/Exclusion, Clear to Auscultation, No Wheeze/Rhonchi/Rales Cardio Vascular: RRR, No murmur, gallop, rubs, NL S1 S2 GI: No tenderness/rebounding/guarding, No organomegaly, No hernia, Normal BS's, Nondistended, No mass/bruits, No McBurney tenderness Other GI comments:: no pulsatile masses : No CVA tenderness Extremities: No tenderness or effusion, Full ROM, normal strength in all extremities, No edema, Normal digits & nails Neuro/Psych: Alert/oriented, DTR's symmetric, Normal sensory exam, Normal motor strength, Judgement/insight normal, Mood normal, Normal gait, No focal deficits Misc: Normal back, No paraspinal tenderness ED Labs/Radiology/EKG Results - Lab Results Comments:: Reviewed - Radiology Results Comments:: CXR: CM; NAD - EKG Interpretations EKG Time:: 21:26 Rate & Rhythm: 70; NSR Comments:: non-specific st-t changes ED Septic Shock - . Is Septic Shock (SBP<90, OR Lactate>4 mmol\L) present?: No - <6hrs of presentation: Vital Signs: Vital Signs - 8 hr 07/04/18 21:08 Temp 97.8 F HR 70 RR 18 BP 144/92 O2 Sat % 96 ED Reassessment (Disposition) - Reassessment Reassessment Condition:: Improved - Diagnosis Diagnosis:: Chest Pain; Angina Pectoris; Hyperlipidemia; Hypoalbuminemia; Hypertension - Aftercare/Follow up Instructions Aftercare/Follow-Up Instructions:: Counseled pt regarding lab results/diagnosis & need follow up, Counseled pt & family regarding lab results/diagnosis & need follow up - Patient Disposition Discharge/Transfer:: Acute Care w/in this hosp Accepting Physician:: Dr. Bourgeois Time Called:: 0 Time Responded:: 23:00 Admitted to:: Telemetry Spoke to:: Dr. Bourgeois Admitting Medical Physician:: Dr. Bourgeois Condition at Disposition:: Stable, Improved
[2018-07-04 21:57] LABS: EOSINOPHILE ABSOLUTE 0.1 Th/cmm (0.1-0.4)
[2018-07-04 22:03] LABS: HEMOGLOBIN 13.3 gm/dL (12-16); MEAN CORPUSCULAR HGB CONC 32.5 pg (28.0-36.0); NEUTROPHILE ABSOLUTE 5.2 Th/cmm (1.8-8.0)
[2018-07-04 22:10] LABS: % BASOPHILS 0.4 % (0.0-2.0); % EOSINOPHILS 1.9 % (0.0-5.0); % LYMPHOCYTES 21.9 % (20.0-50.0); % NEUTROPHILS 68.8 % (40.0-80.0); HEMATOCRIT 40.9 % (41.0-60); LYMPHOCYTE ABSOLUTE 1.6 Th/cmm (1.5-3.0); MEAN CELL VOLUME 84.3 fl (80-99); MEAN CORPUSCULAR HEMOGLOBIN 27.4 pg (26.0-30.0); MEAN PLATELET VOLUME 8.3 fl; MONOCYTE ABSOLUTE 0.5 Th/cmm (0.3-1.0); PLATELET COUNT 210 Th/cmm (150-400); RED BLOOD COUNT 4.85 Mil/cmm (4.30-5.70); RED CELL DISTRIBUTION WIDTH 14.4 % (11.5-20.0); WHITE BLOOD COUNT 7.4 Th/cmm (4.8-10.8)
[2018-07-04 22:14] LABS: ALB/GLOB RATIO 1.3 (1.0-1.8); ALKALINE PHOSPHATASE 89 U/L (34-104); ANION GAP 11.6 (7.0-16.0); BILIRUBIN,TOTAL 0.3 mg/dL (0.3-1.0); BUN - UREA NITROGEN 16 mg/dL (7-25); CALCIUM SERUM 9.2 mg/dL (8.6-10.3); CARBON DIOXIDE 26.4 mEq/L (21.0-31.0); CHLORIDE 108 mEq/L (98-107); CHOLESTEROL 211 mg/dL (<200); CREATININE KINASE 303 U/L (30-223); GFR AFRICAN-AMERICAN > 60.0 ml/min (>90); GFR NON AFRICAN-AMERICAN > 60.0 ml/min; GLUCOSE 102 mg/dL (70-105); HDL -HIGH DENSITY LIPOPROTEIN 38 mg/dL (23-92); SGOT 14 U/L (13-39); SGPT/ALT 12 U/L (7-52); SODIUM SERUM 142 mEq/L (136-145); TRIGLYCERIDES 136 mg/dL (<150)
[2018-07-04] MEDS ORDERED: Morphine Sulfate 2 mg/mL 1mL Syr ONE (22:14)
[2018-07-04 22:16] LABS: INR 1.02 (0.5-1.4); PROTHROMBIN TIME (TEST) 10.6 SECONDS (9.5-11.5)
[2018-07-04] MEDS ORDERED: Morphine Sulfate 2 mg/mL 1mL Syr IVP STA (22:17)
[2018-07-04] MEDS ORDERED: Morphine Sulfate 2 mg/mL 1mL Syr IVP PRN (23:05)
[2018-07-04] MEDS ORDERED: Sodium Chloride 0.9% 1,000 ML IV SCH (23:15)
[2018-07-05 02:35] VITALS: BP 138/74
--- NOTE | 2018-07-05 08:35 | History and Physical ---
History of Present Illness - HPI Chief Complaint: Chest pain with exertion HPI: Patient refer that x one day he has having exertional chest pain. Vital Signs: Last Vital Signs Temp 98.2 F 07/04/18 23:45 Pulse 76 07/04/18 23:45 Resp 19 07/04/18 23:45 BP 138/74 07/05/18 02:35 Pulse Ox 95 07/04/18 23:45 Past Medical History Cardiovascular: Report: CAD, HTN Pulmonary: Report: No Pertinent Hx [employer]: Report: Other (Patient uses seroquel, he can not explain the reazon) GI: Report: No Pertinent Hx Psych: Report: Addictions, Other (chronic uses of opiates) Musculoskeletal: Report: No Pertinent Hx Rheumatologic: Report: No pertinent Hx Infectious Disease: Report: No Pertinent Hx Renal/: Report: No Pertinent Hx Endocrine: Report: No Pertinent Hx Dermatology: Report: No Pertinent Hx - Past Surgical History Past Surgical History: No pertinent Hx Family Medical History - Family Member Mother History Unknown: Yes Hx Family Coronary Artery Disease: Yes Hx Family Congestive Heart Failure: Yes Hx Family Hypertension: Yes Social History Smoke: No Alcohol: Occassional Drugs: Other (Addiction to prescribe medications) Lives: With Family Domestic Violence: Negative - Medications Home Medications: Home Medication Medication Instructions Recorded Type Alprazolam [Xanax*] 0.5 mg PO Q12H PRN 09/30/16 History Furosemide [Lasix] 40 mg PO BID 09/30/16 History QUEtiapine Fumarate [SEROquel] 400 mg PO HS 09/30/16 History Atorvastatin Calcium [Lipitor] 20 mg PO DAILY 07/14/17 History Albuterol Sulfate [Proair 90 mcg IH Q6H PRN 03/16/18 History Respiclick] Bumetanide [Bumex] 1 mg PO DAILY 03/16/18 History Ferrous Sulfate [Iron] 325 mg PO BID 03/16/18 History Fluticasone Furoate [Arnuity 50 mcg IH DAILY 03/16/18 History Ellipta] Fluticasone/Salmeterol [Advair 1 puff IH DAILY 03/16/18 History 250-50 Diskus] Levalbuterol Tartrate 15 gm IH Q2H 03/16/18 History [Levalbuterol Tartrate Hfa] Nicotine 21 mg/24 hr [Nicotine 21 mg TD DAILY 03/16/18 History Transdermal System] Ondansetron HCl [Zofran*] 4 mg PO Q8H #12 tab 03/16/18 Rx Potassium Chloride 1 tab PO DAILY 03/16/18 History Prednisone [Deltasone] 40 mg PO DAILY 03/16/18 History Promethazine/Dextromethorphan 5 ml PO Q12H PRN 03/16/18 History [Promethazine-Dm Syrup] - Allergies Allergies/Adverse Reactions: Allergies Allergy/AdvReac Type Severity Reaction Status Date / Time acetaminophen [From Vicodin] Allergy Verified 03/18/18 08:25 aspirin Allergy Verified 03/18/18 08:25 hydrocodone [From Vicodin] Allergy Verified 03/18/18 08:25 Iodine and Iodide Containing Allergy Verified 03/18/18 08:25 Produc nitroglycerin Allergy Verified 03/18/18 08:25 Penicillins Allergy Verified 03/18/18 08:25 Review of Systems - Review of Systems Constitutional: Report: No Significant Eyes: Report: No Significant ENT: Report: No Significant Respiratory: Report: No Significant Cardiovascular: Report: Other (Occasional chest pain) Gastrointestinal: Report: No Significant Genitourinary: Report: No Significant Musculoskeletal: Report: No Significant Skin: Report: No Significant Neurological: Report: No Significant Physical Exam - Physical Exam HEENT: Report: Ears Nose Throat within normal limits Neck: Report: Within normal limits Cardiovascular Systems: Report: Regular, Rate and Rhythm Respiratory: Report: Breath Sounds are within normal limits Abdomen: Report: Non-tender to palpation Back: Report: Inspection of back is within normal limits. Extremities: Report: Non-tender to palpation. Skin: Report: Color of skin is within normal limits Neuro/Psych: Report: Other (Patient is sleeping but arousable) - Lab Results All Lab Results last 24 hours: Laboratory Results - last 24 hr 07/04/18 07/04/18 07/04/18 21:40 21:40 21:40 WBC 7.4 RBC 4.85 Hgb 13.3 Hct 40.9 L MCV 84.3 MCH 27.4 MCHC Differential 32.5 RDW 14.4 Plt Count 210 MPV 8.3 Neutrophils % 68.8 Lymphocytes % 21.9 Monocytes % 7.0 Eosinophils % 1.9 Basophils % 0.4 PT 10.6 INR 1.02 D-Dimer Sodium 142 Potassium 4.0 Chloride 108 H Carbon Dioxide 26.4 Anion Gap 11.6 BUN 16 Creatinine 1.0 Est GFR ( Amer) > 60.0 Est GFR (Non-Af Amer) > 60.0 BUN/Creatinine Ratio 16.0 Glucose 102 Calcium 9.2 Total Bilirubin 0.3 AST 14 ALT 12 Alkaline Phosphatase 89 Creatine Kinase 303 H CK-MB (CK-2) 2.2 Troponin I B-Natriuretic Peptide Total Protein 7.0 Albumin 4.0 L Globulin 3.0 Albumin/Globulin Ratio 1.3 Triglycerides 136 Cholesterol 211 H LDL Cholesterol Direct 158 HDL Cholesterol 38 07/04/18 07/04/18 07/04/18 21:40 21:40 21:40 WBC RBC Hgb Hct MCV MCH MCHC Differential RDW Plt Count MPV Neutrophils % Lymphocytes % Monocytes % Eosinophils % Basophils % PT INR D-Dimer 186 Sodium Potassium Chloride Carbon Dioxide Anion Gap BUN Creatinine Est GFR ( Amer) Est GFR (Non-Af Amer) BUN/Creatinine Ratio Glucose Calcium Total Bilirubin AST ALT Alkaline Phosphatase Creatine Kinase CK-MB (CK-2) Troponin I < 0.01 L B-Natriuretic Peptide 14.8 Total Protein Albumin Globulin Albumin/Globulin Ratio Triglycerides Cholesterol LDL Cholesterol Direct HDL Cholesterol - Assessment Assessment: Patient is sleeping but arousable, in no acuter distress. Dx: Chest pain possible secondary to costochondritis, Hyperlipemia. - Plan Plan: Patient in IV NS, pain control, and ativan for anxiety. CK a little elevated possible secondary to medications ( Albuterol, Atorvastatin, levalbuterol). Troponin is normal, Leg US neg for DVT. Patient will be discharge home.
[2018-07-05] MEDS ORDERED: Ferrous Sulfate 325 MG TAB PO SCH (09:00)
[2018-07-05] MEDS ORDERED: Nicotine 21 mg/24 hr Tdm TD SCH (09:00)
--- NOTE | 2018-07-05 09:00 | Diagnostic Imaging Report ---
Portable chest x-ray Time: 2139 History: Chest pain Allowing for portable technique the heart size is normal. No focal pulmonary parenchymal processes. No hilar or mediastinal abnormalities. Impression: No acute abnormalities.
--- NOTE | 2018-07-05 10:22 | Diagnostic Imaging Report ---
Bilateral lower extremity Doppler venous ultrasound exam HISTORY: Pain/swelling Sonographic sector images were obtained through the deep venous systems of both legs. Associated Doppler data was obtained. The exam demonstrates patency of the common femoral, superficial femoral, popliteal, and posterior tibial veins bilaterally. Specifically, no thrombus is seen. There are normal compressibility and augmentation responses. IMPRESSION: Negative exam for deep vein thrombophlebitis.
--- NOTE | 2018-07-06 00:38 | Consultation ---
DATE OF CONSULTATION: 07/05/[address] Bourgeois. HISTORY OF PRESENT ILLNESS: This 43-year-old -[place] male patient who had been complaining of chest pain for 2 days. Following this, the patient came to the Emergency Room. No history of PND or orthopnea. PAST MEDICAL HISTORY: Hypertension and coronary artery disease. SOCIAL HISTORY: No history of smoking, alcohol abuse. ALLERGIES: No known allergies. PHYSICAL EXAMINATION: VITAL SIGNS: Blood pressure 130/80, pulse 70 and respirations 20. HEAD: Normocephalic. No lumps or bumps. EYES: Pupils equal, reactive to light. Fundi show AV nicking, sclerae white, conjunctivae pink. NECK: Carotid 2+. Normal upstroke. JVD flat. Thyroid not palpable. Lymph nodes not palpable. CHEST: Shows increased AP diameter. No kyphosis or scoliosis. LUNGS: Bilateral bronchovesicular breath sounds. HEART: PMI fifth intercostal space with lateral to midclavicular line. S1 and S2. No S3 or S4. Soft systolic murmur. ABDOMEN: Soft. Liver and spleen not palpable. No organomegaly. Bowel sounds active. NEUROLOGIC: Unremarkable. EXTREMITIES: Peripheral pulses 2+. No pedal edema. CLINICAL IMPRESSION: 1. Atypical chest pain. 2. Anxiety and hypertension. PLAN: The patient's troponin level normal. The patient can be discharged. Also, the patient has nicotine dependence. The patient advised to stop smoking and patient to have stress test with his primary doctor. JOB# [id number]
== END 2018-07-05 13:54 | disposition home or self-care (01) ==
LOC: ER 21:08 → TELE 23:40
PROVIDERS: ADMIT General Practice; ATTEND General Practice
DX: R07.89 Other chest pain (principal); E78.5 Hyperlipidemia, unspecified; I25.10 Atherosclerotic heart disease of native coronary artery without angina pectoris; I10 Essential (primary) hypertension
CPT/HCPCS: 99285; 93005; 93970; 71045; 84484; 83880; 36415; 85379; 85025; 85610; 82550; 82553; 80053; 80061; 87081; 96374; 99219 ×15; J2270; G0378; J7030; Z7610